=== PATIENT | female | born 1995 | race Caucasian/White ===

== ENCOUNTER 2019-03-05 16:00 | Emergency (ER) | payer SELFPAY ==
[~2019-03-05] VITALS: Ht 154.9 cm; Wt 68.0 kg
[2019-03-05 16:14] VITALS: BP 110/68
[2019-03-05] MEDS ORDERED: ACETAMINOPHEN EXTRA STRENGTH 500 MG TAB PO ONE (16:35)
[2019-03-05] MEDS ORDERED: ACETAMINOPHEN EXTRA STRENGTH 500 MG TAB ONE (16:46)
[2019-03-05 17:44] VITALS: BP 120/65
== END 2019-03-05 17:46 | disposition home or self-care (01) ==
LOC: MED 16:00
DX: S80.02XA Contusion of left knee, initial encounter (principal); W50.1XXA Accidental kick by another person, initial encounter; Y93.66 Activity, soccer; Y92.89 Other specified places as the place of occurrence of the external cause; Y99.8 Other external cause status
CPT/HCPCS: 73560; 99283

== ENCOUNTER 2019-03-10 20:17 | Emergency (ER) | payer MEDICAID ==
[~2019-03-10] VITALS: Ht 152.4 cm; Wt 68.0 kg
[2019-03-10 20:30] VITALS: BP 129/88
--- NOTE | 2019-03-10 20:43 | NUR ---
24 Y/O FEMALE C/O LT KNEE PAIN X1 WEEK. PT STATES SHE WAS SEEN LAST WEEK FOR PAIN S/P INJURY AND WAS USING CRUTCHES FOR 2 DAYS. PAIN INCREASED BY AMBULATION. 10/23 SHARP INTERMITTENT PAIN. NO SWELLING OR BRUISING NOTED. NO SIGNS OF DEFORMITY. LMP 03/03/19. PT POSITIONED IN BED FOR COMFORT. BED LOCKED AND IN LOW POSITION X1 SIDERAILE RAISED. MEDHX: DENIES ALLERGIES: NKA
[2019-03-10] MEDS ORDERED: KETOROLAC 30 MG/ML VIAL IM ONE (20:55)
--- NOTE | 2019-03-10 21:12 | NUR ---
Patient discharged with v/s stable. Written and verbal after care instructions given and explained. Patient alert, oriented and verbalized understanding of instructions. Ambulatory with steady gait. All questions addressed prior to discharge. ID band removed. Patient advised to follow up with PMD. Rx of norco and naprosyn given. Patient educated on indication of medication including possible reaction and side effects. Opportunity to ask questions provided and answered.
== END 2019-03-10 21:21 | disposition home or self-care (01) ==
LOC: MED 20:17
DX: M25.562 Pain in left knee (principal)
CPT/HCPCS: 96372; 99283; J1885

== ENCOUNTER 2019-04-11 19:40 | Emergency (ER) | payer MEDICAID ==
[~2019-04-11] VITALS: Ht 152.4 cm; Wt 68.0 kg
[2019-04-11 19:45] VITALS: BP 135/76
--- NOTE | 2019-04-11 21:34 | NUR ---
24 Y/O FEMALE BIB PARTNER WITH REPORTS OF PRESSURE, AND BURNING PAIN IN HER CHEST STARTING 20 MIN [employer]. STATES SHE WAS DRIVING HOME WHEN IT STARTED. PAIN IS NONRADIATING. STATES NAUSEA AND VOMITING X1. STATES SHE HAS HAD COLD SYMPTOMS FOR 2 DAYS. DIMINISHED BREATH SOUNDS HEARD ANTERIOR/POSTERIOR BILATERALLY. 99% ON RA. NONPRODUCTIVE DRY COUGH NOTED. ERMD MADE AWARE OF STATUS. PLACED ON MONITOR. WILL CONTINUE TO MONITOR. PMH:NONE RX:NONE NKDA
--- NOTE | 2019-04-11 21:42 | NUR ---
PT AMBULATED TO ER BED 08
--- NOTE | 2019-04-11 21:57 | NUR ---
X-RAY AT BEDSIDE
--- NOTE | 2019-04-11 22:12 | NUR ---
DR. GOMEZ AT BEDSIDE EVALUATING PATIENT.
[2019-04-11] MEDS ORDERED: KETOROLAC 60 MG/2 ML VIAL IM ONE (22:35)
[2019-04-11 22:48] VITALS: BP 129/67
--- NOTE | 2019-04-11 22:48 | NUR ---
Patient discharged with v/s stable. Written and verbal after care instructions given and explained. Patient alert, oriented and verbalized understanding of instructions. Ambulatory with steady gait. All questions addressed prior to discharge. ID band removed. Patient advised to follow up with PMD. Rx of PROMETHAZINE; AMOXICILLIN given. Patient educated on indication of medication including possible reaction and side effects. Opportunity to ask questions provided and answered.
== END 2019-04-11 22:48 | disposition home or self-care (01) ==
LOC: MED 19:40
DX: J18.9 Pneumonia, unspecified organism (principal)
CPT/HCPCS: 71045; 93005; 96372; 99283; J1885; Q0092

== ENCOUNTER 2019-05-11 00:46 | Emergency (ER) | payer MEDICAID ==
[~2019-05-11] VITALS: Ht 154.9 cm; Wt 68.0 kg
[2019-05-11 00:50] VITALS: BP 126/77
--- NOTE | 2019-05-11 00:54 | NUR ---
URINE SAMPLE COLLECTED AND PATIENT SENT TO LOBBY.
--- NOTE | 2019-05-11 01:16 | NUR ---
URINE TAKEN TO LAB.
[2019-05-11 01:54] LABS: APPEARANCE,URINE HAZY (CLEAR); BILIRUBIN,URINE NEGATIVE (NEGATIVE); BLOOD, URINE 3+ (NEGATIVE); COLOR,URINE YELLOW (YELLOW); LEUKOCYTE ESTERASE ,URINE TRACE (NEGATIVE); NITRITE, URINE NEGATIVE (NEGATIVE); UGLUCOSE NEGATIVE (NEGATIVE)
[2019-05-11 02:10] LABS: RBC,URINE 20-50 /HPF (0-5); WBC,URINE 60-80 /HPF (0-5)
[2019-05-11] MEDS ORDERED: CEPHALEXIN 500 MG CAP PO STA (02:31)
--- NOTE | 2019-05-11 02:42 | NUR ---
24 y/o female presents to ed with c/o urninary burning, itching, odor, and frequency x12 hrs. Afebrile with vss. No vaginal drainage or bleeding. 6/10 pain with urination. ER MD aware. Sitting in chair with family at chairide. Continue to monitor.
[2019-05-11 02:55] VITALS: BP 121/86
--- NOTE | 2019-05-11 02:55 | NUR ---
Patient discharged with v/s stable. She states pain reduced and tollerable at 2/10. Written and verbal after care instructions given and explained. Patient alert, oriented and verbalized understanding of instructions. Ambulatory with steady gait. All questions addressed prior to discharge. ID band removed. Patient advised to follow up with PMD and when to return to ER. Rx of Phenazopyridine and Keflex given. Patient educated on indication of medication including possible reaction and side effects. Opportunity to ask questions provided and answered.
== END 2019-05-11 02:55 | disposition home or self-care (01) ==
LOC: MED 00:46
DX: N39.0 Urinary tract infection, site not specified (principal); N30.90 Cystitis, unspecified without hematuria
CPT/HCPCS: 81001; 81025; 87086; 87186; 99283

== ENCOUNTER 2019-10-08 06:33 | Emergency (ER) | payer MEDICAID, OTHER ==
[~2019-10-08] VITALS: Ht 152.4 cm; Wt 68.0 kg
[2019-10-08 06:42] VITALS: BP 126/80
--- NOTE | 2019-10-08 06:49 | NUR ---
PT AMBULATED TO BED #7
--- NOTE | 2019-10-08 06:50 | NUR ---
24 Y/O MALE PRESENTED TO ED C/O UTI SYMPTOMS . PT STATES SHE HAS HAD BURNING PAIN UPON URINATION X 4 DAYS. PT STATES 2 WEEKS AGO SHE WAS DX W/ UTI AND TOOK ANTIBIOTICS TO COMPLETION AND THEN GOT A YEAST INFECTION. PT UNAWARE WHAT THE ANTIBIOTICS WERE THAT SHE TOOK. PT DENIES N/V/D/F. PT STATES SHE HAS BEEN TAKING AZO W/ NO RELIEF. PT BREATHING EVEN AND UNLABORED. A/O X4. PT RESTING IN BED, LOCKED AND IN LOWEST POSITION, HOB ELEVATED , SIDE RAIL X1. PMH: NONE NKA
--- NOTE | 2019-10-08 07:10 | NUR ---
REPORT GIVEN TO MADI PFEIFFER FOR TRANSFER OF CARE.
--- NOTE | 2019-10-08 07:22 | NUR ---
DR BOSS EVALUATING PT AT BEDSIDE
[2019-10-08 08:00] VITALS: BP 126/80
--- NOTE | 2019-10-08 08:00 | NUR ---
Patient discharged with v/s stable. Written and verbal after care instructions given and explained. Patient alert, oriented and verbalized understanding of instructions. Ambulatory with steady gait. All questions addressed prior to discharge. ID band removed. Patient advised to follow up with PMD. Rx of Phenazopyridine, Kelfex 500mg, Diflucan 150mg given. Patient educated on indication of medication including possible reaction and side effects. Opportunity to ask questions provided and answered.
== END 2019-10-08 08:00 | disposition home or self-care (01) ==
LOC: MED 06:33
DX: N39.0 Urinary tract infection, site not specified (principal); Z90.49 Acquired absence of other specified parts of digestive tract
CPT/HCPCS: 81002; 81025; 99283

== ENCOUNTER 2020-02-11 17:33 | Emergency (ER) | payer OTHER ==
[~2020-02-11] VITALS: Ht 152.4 cm; Wt 70.3 kg
[2020-02-11 17:35] VITALS: BP 119/71
[2020-02-11] MEDS: KETOROLAC 30 MG/ML VIAL IM ONE (17:59)
[2020-02-11] MEDS: MAGNESIUM CITRATE 300 ML BTL PO ONE (18:00)
== END 2020-02-11 19:26 | disposition home or self-care (01) ==
LOC: MED 17:33
DX: K59.00 Constipation, unspecified (principal); N39.0 Urinary tract infection, site not specified; Z90.49 Acquired absence of other specified parts of digestive tract
CPT/HCPCS: 74018; 81002; 81025; 87086; 96372; 99284; J1885

== ENCOUNTER 2020-03-09 21:53 | Emergency (ER) | payer OTHER ==
[~2020-03-09] VITALS: Ht 152.4 cm; Wt 69.4 kg
[2020-03-09 22:05] VITALS: BP 110/72
--- NOTE | 2020-03-09 22:13 | NUR ---
PT TAKEN TO BED 4
--- NOTE | 2020-03-09 22:45 | NUR ---
25 Y/O FEMALE C/O LOWER ABD PAIN STARTED TODAY, PAINFUL URINATION. PT STATES "I COME IN FOR THE SAME PAIN EVERY MONTH" STATES IT "FEELS LIKE A UTI." PT STATES 7/10 BURNING PAIN AND CONSTIPATION. DENIES NAUSEA/VOMITING. PT TOOK PHENZAPHYRIDINE TODAY. MEDHX: UTI NKA
--- NOTE | 2020-03-09 23:23 | NUR ---
Dr. Lujan examining patient.
[2020-03-09] MEDS ORDERED: KETOROLAC 30 MG/ML VIAL IM ONE (23:40)
[2020-03-09] MEDS ORDERED: PHENAZOPYRIDINE 100 MG TAB PO ONE (23:40)
[2020-03-09] MEDS ORDERED: SULFAMETH/TRIMETH DS 800/160MG 1 TAB PO ONE (23:40)
[2020-03-10 00:07] VITALS: BP 110/72
--- NOTE | 2020-03-10 00:07 | NUR ---
Patient discharged with v/s stable. Written and verbal after care instructions given and explained. Patient alert, oriented and verbalized understanding of instructions. Ambulatory with steady gait. All questions addressed prior to discharge. ID band removed. Patient advised to follow up with PMD. Rx of MIRALAX, PYRIDIUM, BACTRIM, MOTRIN, MINERAL OIL given. Patient educated on indication of medication including possible reaction and side effects. Opportunity to ask questions provided and answered.
== END 2020-03-10 00:07 | disposition home or self-care (01) ==
LOC: MED 21:53
DX: N39.0 Urinary tract infection, site not specified (principal); K59.00 Constipation, unspecified
CPT/HCPCS: 81002; 81025; 96372; 99283; J1885

== ENCOUNTER 2020-03-24 05:25 | Emergency (ER) | payer OTHER ==
[~2020-03-24] VITALS: Ht 152.4 cm; Wt 68.0 kg
[2020-03-24 05:25] VITALS: BP 110/75
--- NOTE | 2020-03-24 05:28 | NUR ---
TO LOBBY A/W BED AMBULATORY
--- NOTE | 2020-03-24 05:53 | NUR ---
Dr. Nguyen examining patient.
--- NOTE | 2020-03-24 06:49 | NUR ---
PT TAKEN TO CT FROM [facility]
[2020-03-24] MEDS ORDERED: IBUPROFEN 400 MG TAB PO ONE (07:30)
--- NOTE | 2020-03-24 07:30 | NUR ---
Patient being evaluated by DR ZAPIEN at TRIAGE.
--- NOTE | 2020-03-24 07:42 | NUR ---
25/F BIB SILF C/O LOWER ABD PAIN 8/10 AT THIS TIME. X 3 DAYS.DENIES DYSURIA OR N/V/D. ABD SOFT, NO TENDERNESS
--- NOTE | 2020-03-24 08:13 | NUR ---
BLOOD DRAWN AND WALKED TO LAB, HANDED TO LEEANN
[2020-03-24 08:22] LABS: BASOPHILS % (AUTO) 0.4 % (0.0-2.0); EOSINOPHILS # (AUTO) 0.2 K/uL (0-0.4); EOSINOPHILS % (AUTO) 2.7 % (0.0-4.0); LYMPHOCYTES # (AUTO) 1.3 K/uL (2.5-16.5); LYMPHOCYTES % (AUTO) 20.5 % (20.5-51.1); MEAN CORPUSCULAR HEMOGLOBIN 31 pg (27-31); MEAN CORPUSCULAR HGB CONC 33 g/dL (33-37); MEAN CORPUSCULAR VOLUME 91.8 fL (80-94); MONOCYTES # (AUTO) 0.4 K/uL (0.8-1.0); MONOCYTES % (AUTO) 6.3 % (1.7-9.3); NEUTROPHILS # (AUTO) 4.6 K/uL (1.8-7.7); NEUTROPHILS % (AUTO) 70.1 % (42.2-75.2); PLATELET COUNT (AUTO) 217 K/uL (140-450); RED BLOOD CELL COUNT(AUTO) 4.25 MIL/uL (4.20-5.40); WHITE BLOOD COUNT (AUTO) 6.5 K/uL (4.8-10.8)
[2020-03-24 08:42] LABS: BILIRUBIN,URINE NEGATIVE (NEGATIVE); BLOOD, URINE 3+ (NEGATIVE); COLOR,URINE YELLOW (YELLOW); LEUKOCYTE ESTERASE ,URINE NEGATIVE (NEGATIVE); NITRITE, URINE NEGATIVE (NEGATIVE); UGLUCOSE NEGATIVE (NEGATIVE)
[2020-03-24 08:48] LABS: ALBUMIN 4.2 g/dL (3.4-5.0); ANION GAP 12.8 (8-16); CARBON DIOXIDE 28.1 mmol/L (21-32); CREATININE 0.5 mg/dL (0.6-1.3); POTASSIUM 3.9 mmol/L (3.5-5.1); TOTAL BILIRUBIN 0.2 mg/dL (0.0-1.0)
[2020-03-24 09:11] LABS: APPEARANCE,URINE SLIGHTLY HAZY (CLEAR)
[2020-03-24 09:14] LABS: WBC,URINE 0-5 /HPF (0-5)
[2020-03-24] MEDS ORDERED: ACETAMINOPHEN 325 MG TAB PO ONE (10:50)
[2020-03-24] MEDS ORDERED: ONDANSETRON 4 MG ODT PO ONE (11:20)
[2020-03-24] MEDS ORDERED: MORPHINE SULFATE 4 MG/ML SYR IM ONE ×2 (11:20→12:35)
--- NOTE | 2020-03-24 13:08 | NUR ---
PT MOVED TO BED 11.
--- NOTE | 2020-03-24 13:11 | NUR ---
RECEIVED REPORT FROM MADI [facility]ITAL FOR CONTINUATION OF CARE AT THIS TIME. PT IS LAYING DOWN IN SEMI-FOWLERS POSITION. BED IS LOCKED AND IN LOWEST POSITION. SIDE RAILS X1 WILL CONTINUE TO MONITOR.
--- NOTE | 2020-03-24 14:04 | NUR ---
PTS BOYFRIEND BROUGHT HER JAMBA JUICE, ERMD MADE AWARE AND STATED THAT IT WAS OK TO GIVE TO HER
--- NOTE | 2020-03-24 14:09 | NUR ---
[facility] CALLED LAB TO RECEIVE A STATUS UPDATE ON THE RHOGAM
--- NOTE | 2020-03-24 14:45 | NUR ---
LAB CALLED TO LET ME KNOW THAT RHOGAM IS READY TO BE PICKED UP
--- NOTE | 2020-03-24 15:00 | NUR ---
PT SIGNED CONSENT FOR RHOGAM TO BE GIVEN
--- NOTE | 2020-03-24 15:02 | NUR ---
WALKED OVER TO LAB TO [facility]
--- NOTE | 2020-03-24 15:18 | NUR ---
per ermd order rhogam given IM in the left gluteus ester. pt tolerated well. will continue to monitor.
[2020-03-24 15:57] VITALS: BP 102/50
--- NOTE | 2020-03-24 15:57 | NUR ---
Patient discharged with v/s stable. Written and verbal after care instructions given and explained. Patient verbalized understanding. Ambulatory with steady gait. All questions addressed prior to discharge. Advised to follow up with PMD.
== END 2020-03-24 15:57 | disposition home or self-care (01) ==
LOC: MED 05:25
DX: R10.30 Lower abdominal pain, unspecified (principal); Z67.41 Type O blood, Rh negative
CPT/HCPCS: 36415; 74176; 76817; 80053; 81001; 81025; 83690; 84702; 85025; 86886; 86900; 86901; 87086; 96372; 99285; J2270; J2790; Q0162

== ENCOUNTER 2020-03-27 01:45 | Emergency (ER) | payer OTHER ==
--- NOTE | 2020-03-27 03:03 | NUR ---
LEFT WITHOUT BEING SEEN
== END 2020-03-27 03:03 | disposition left against medical advice (07) ==
LOC: MED 01:45
DX: R10.9 Unspecified abdominal pain (principal); Z53.21 Procedure and treatment not carried out due to patient leaving prior to being seen by health care provider
CPT/HCPCS: 99281

== ENCOUNTER 2020-04-05 18:40 | Emergency (ER) | payer OTHER ==
[~2020-04-05] VITALS: Ht 160 cm; Wt 59.0 kg
[2020-04-05 18:45] VITALS: BP 124/74
--- NOTE | 2020-04-05 18:48 | NUR ---
TO LOBBY A/W BED AMBULATORY
--- NOTE | 2020-04-05 21:25 | NUR ---
SEEN AND EXAMINED BY LUCITA WITH ORDERS AND CARRIED OUT
[2020-04-05] MEDS ORDERED: MORPHINE SULFATE 4 MG/ML SYR IVP ONE (21:30)
[2020-04-05] MEDS ORDERED: ONDANSETRON 4 MG/2 ML VIAL IVP ONE (21:30)
[2020-04-05] MEDS ORDERED: NACL 0.9% 1,000 ML IV ONE (21:30)
[2020-04-05 22:30] LABS: BASOPHILS % (AUTO) 0.4 % (0.0-2.0); EOSINOPHILS # (AUTO) 0.2 K/uL (0-0.4); HEMATOCRIT 39.8 % (36-48); HEMOGLOBIN 13.4 g/dL (12.0-16.0); LYMPHOCYTES # (AUTO) 2.4 K/uL (2.5-16.5); MEAN CORPUSCULAR HEMOGLOBIN 30 pg (27-31); MEAN CORPUSCULAR HGB CONC 34 g/dL (33-37); MEAN CORPUSCULAR VOLUME 90.3 fL (80-94); MONOCYTES # (AUTO) 0.6 K/uL (0.8-1.0); MONOCYTES % (AUTO) 7.2 % (1.7-9.3); NEUTROPHILS # (AUTO) 5.1 K/uL (1.8-7.7); NEUTROPHILS % (AUTO) 61.4 % (42.2-75.2); PLATELET COUNT (AUTO) 262 K/uL (140-450); RED BLOOD CELL COUNT(AUTO) 4.41 MIL/uL (4.20-5.40); WHITE BLOOD COUNT (AUTO) 8.3 K/uL (4.8-10.8)
[2020-04-05 23:01] LABS: ALBUMIN 4.3 g/dL (3.4-5.0); ANION GAP 13.8 (8-16); CARBON DIOXIDE 28.7 mmol/L (21-32); CREATININE 0.6 mg/dL (0.6-1.3); POTASSIUM 3.5 mmol/L (3.5-5.1); TOTAL BILIRUBIN 0.3 mg/dL (0.0-1.0)
[2020-04-05] MEDS ORDERED: HYDROcodone/APAP 10/325 MG 1 TAB TAB PO PRN (23:15)
[2020-04-05] MEDS ORDERED: ONDANSETRON 4 MG ODT PO ONE (23:15)
[2020-04-05] MEDS ORDERED: NAPROXEN 500 MG TAB ONE (23:59)
--- NOTE | 2020-04-06 | NUR ---
MEDICATED PER ERMDS ORDER, CARRIED OUT
--- NOTE | 2020-04-06 00:48 | NUR ---
CAROLYND RE EVALUATED AND TALKED TO THE PATIENT.
[2020-04-06 00:55] VITALS: BP 124/74
--- NOTE | 2020-04-06 00:55 | NUR ---
Patient discharged with v/s stable. Written and verbal after care instructions given and explained. Patient alert, oriented and verbalized understanding of instructions. Ambulatory with steady gait. All questions addressed prior to discharge. ID band removed. Patient advised to follow up with PMD. Rx of NORCO, NAPROXEN given. Patient educated on indication of medication including possible reaction and side effects. Opportunity to ask questions provided and answered.
[2020-04-06] MEDS ORDERED: NAPROXEN 500 MG TAB PO SCH (09:00)
== END 2020-04-06 00:55 | disposition home or self-care (01) ==
LOC: MED 18:40
DX: O20.0 Threatened abortion (principal); Z3A.08 8 weeks gestation of pregnancy
CPT/HCPCS: 36415; 76801; 80053; 81002; 81025; 84702; 85025; 86900; 86901; 99284; Q0162

== ENCOUNTER 2022-01-08 04:00 | Emergency (ER) | payer OTHER ==
[~2022-01-08] VITALS: Ht 160 cm; Wt 71.2 kg
[2022-01-08 04:07] VITALS: BP 122/78
--- NOTE | 2022-01-08 04:11 | NUR ---
PT TO LOBBY.
[2022-01-08] MEDS ORDERED: DEXAMETHASONE 10 MG/ML VIAL PO ONE (05:25)
--- NOTE | 2022-01-08 05:36 | NUR ---
PT MEDICATED, SWABS COLLECTED AND TAKEN TO LAB
[2022-01-08] MEDS ORDERED: PENI500T20 PO (05:39)
[2022-01-08 05:46] VITALS: BP 122/78
--- NOTE | 2022-01-08 05:46 | NUR ---
Patient discharged with v/s stable. Written and verbal after care instructions given and explained. Patient alert, oriented and verbalized understanding of instructions. Ambulatory with steady gait. All questions addressed prior to discharge. ID band removed. Patient advised to follow up with PMD. Rx of PCN V POTASSIUM given. Patient educated on indication of medication including possible reaction and side effects. Opportunity to ask questions provided and answered.
== END 2022-01-08 05:46 | disposition home or self-care (01) ==
LOC: MED 04:00
DX: J02.9 Acute pharyngitis, unspecified (principal); Z20.822 Contact with and (suspected) exposure to COVID-19
CPT/HCPCS: 87081; 87426; 99283; J1100

== ENCOUNTER 2022-03-08 18:52 | Emergency (ER) | payer OTHER ==
[~2022-03-08] VITALS: Ht 154.9 cm; Wt 70.3 kg
[~2022-03-08 18:52] MED LIST: PENI500T20 PO
[2022-03-08 19:03] VITALS: BP 104/74
--- NOTE | 2022-03-08 19:07 | NUR ---
Patient ambulated to bed 5.
--- NOTE | 2022-03-08 19:10 | NUR ---
Dr. Rios at bedside examining pt.
[2022-03-08] MEDS ORDERED: DEXAMETHASONE 10 MG/ML VIAL PO ONE (19:15)
[2022-03-08] MEDS ORDERED: ACET-10509 PO (19:19)
[2022-03-08] MEDS ORDERED: METO-485 PO (19:19)
--- NOTE | 2022-03-08 19:28 | NUR ---
Pt coming from home ambulatory with steady gait. Pt is A&Ox4. C/O sore throat pain 4/10 non-radiating. VSS. Skin intact. NKA. No known medical conditions. Denies n/v. No chest pain and no sob. Bed in lowest position.
[2022-03-08 20:17] VITALS: BP 99/65
--- NOTE | 2022-03-08 20:17 | NUR ---
Patient discharged with v/s stable. Written and verbal after care instructions given and explained. Patient alert, oriented and verbalized understanding of instructions. Ambulatory with steady gait. All questions addressed prior to discharge. ID band removed. Patient advised to follow up with PMD. Rx of TYLENOL, REGLAN given. Patient educated on indication of medication including possible reaction and side effects. Opportunity to ask questions provided and answered.
== END 2022-03-08 20:17 | disposition home or self-care (01) ==
LOC: MED 18:52
DX: B34.9 Viral infection, unspecified (principal); Z20.822 Contact with and (suspected) exposure to COVID-19; Z79.899 Other long term (current) drug therapy; Z79.2 Long term (current) use of antibiotics
CPT/HCPCS: 87426; 87804; 99283; J1100

== ENCOUNTER 2022-04-03 23:38 | Emergency (ER) | payer OTHER ==
[~2022-04-03] VITALS: Ht 152.4 cm; Wt 70.3 kg
[~2022-04-03 23:38] MED LIST changes: +ACET-10509 PO; +METO-485 PO
[2022-04-04 00:23] VITALS: BP 111/81
--- NOTE | 2022-04-04 00:30 | NUR ---
TO LOBBY FOLLOWING TRIAGE
--- NOTE | 2022-04-04 01:20 | NUR ---
PT TAKEN TO XRAY
--- NOTE | 2022-04-04 02:36 | NUR ---
Dr. Knutson examining patient.
[2022-04-04] MEDS ORDERED: KETOROLAC 30 MG/ML VIAL IM ONE (02:40)
[2022-04-04] MEDS ORDERED: NAPR-1717 PO (02:45)
[2022-04-04] MEDS ORDERED: AZIT250T3 PO (02:45)
[2022-04-04] MEDS ORDERED: ROBAC PO (02:45)
[2022-04-04 03:06] VITALS: BP 117/79
--- NOTE | 2022-04-04 03:06 | NUR ---
Patient discharged with v/s stable. Written and verbal after care instructions given and explained. Patient alert, oriented and verbalized understanding of instructions. Ambulatory with steady gait. All questions addressed prior to discharge. ID band removed. Patient advised to follow up with PMD. Rx of ZITHROMAX NAPROSYN GUAIFENESIN given.
== END 2022-04-04 03:06 | disposition home or self-care (01) ==
LOC: MED 23:38
DX: J06.9 Acute upper respiratory infection, unspecified (principal); Z20.822 Contact with and (suspected) exposure to COVID-19; R07.89 Other chest pain; R05.9 Cough, unspecified; R09.89 Other specified symptoms and signs involving the circulatory and respiratory systems; Z79.899 Other long term (current) drug therapy
CPT/HCPCS: 71045; 87426; 87804; 96372; 99283; J1885

== ENCOUNTER 2022-10-31 01:25 | Emergency (ER) | payer OTHER ==
[~2022-10-31] VITALS: Ht 152.4 cm; Wt 70.3 kg
[~2022-10-31 01:25] MED LIST changes: +AZIT250T3 PO; +NAPR-1717 PO; +ROBAC PO
[2022-10-31 01:51] VITALS: BP 113/82; PULSE 74; RESP 20; TEMP 98.4; O2SAT 100
--- NOTE | 2022-10-31 01:57 | NUR ---
PT TRIAGED AND AMBULATED TO WR.
[2022-10-31 02:09] LABS: APPEARANCE,URINE CLEAR (CLEAR); BILIRUBIN,URINE NEGATIVE (NEGATIVE); BLOOD, URINE NEGATIVE (NEGATIVE); COLOR,URINE YELLOW (YELLOW); LEUKOCYTE ESTERASE ,URINE NEGATIVE (NEGATIVE); NITRITE, URINE NEGATIVE (NEGATIVE); PH,URINE 6.5 (5.0-9.0); UGLUCOSE NEGATIVE (NEGATIVE)
--- NOTE | 2022-10-31 04:44 | NUR ---
Pt to bed 9
--- NOTE | 2022-10-31 05:52 | NUR ---
ERMD by bedside at this time
[2022-10-31] MEDS ORDERED: KETOROLAC 30 MG/ML VIAL IM ONE (05:55)
[2022-10-31] MEDS ORDERED: diazePAM 5 MG TAB PO ONE (05:55)
[2022-10-31] MEDS ORDERED: NAPR-54 PO (06:34)
[2022-10-31] MEDS ORDERED: LID5T TP (06:34)
[2022-10-31] MEDS ORDERED: CYCL-711 PO (06:34)
--- NOTE | 2022-10-31 06:45 | NUR ---
Per pt, no relief from back pain. ERMD was notified.
[2022-10-31] MEDS ORDERED: MORPHINE SULFATE 4 MG/ML SYR IM ONE (06:50)
--- NOTE | 2022-10-31 07:02 | NUR ---
ERMD by bedside at this time
--- NOTE | 2022-10-31 07:25 | NUR ---
Patient discharged with v/s stable. Written and verbal after care instructions given and explained. New rx flexeril, lidoderm patch, naproxen. Patient verbalized understanding. Ambulatory with steady gait. All questions addressed prior to discharge. Advised to follow up with PMD.
[2022-10-31 07:26] VITALS: BP 113/82; PULSE 74; RESP 20; TEMP 98.4; O2SAT 100
== END 2022-10-31 07:25 | disposition home or self-care (01) ==
LOC: MED 01:25
DX: M54.50 Low back pain, unspecified (principal); R10.9 Unspecified abdominal pain; Z79.899 Other long term (current) drug therapy; Z90.49 Acquired absence of other specified parts of digestive tract
CPT/HCPCS: 81003; 81025; 96372; 99284; J1885; J2270

== ENCOUNTER 2023-05-16 10:15 | Observation (INO) | payer MEDICAID, OTHER ==
[~2023-05-16 10:15] MED LIST changes: +CYCL-711 PO; +LID5T TP; +NAPR-54 PO
[2023-05-16] MEDS ORDERED: PREN-537 PO (14:19)
== END 2023-05-16 14:45 | disposition home or self-care (01) ==
LOC: MLD 10:15 → MFCC 11:20
PROVIDERS: ADMIT Obstetrics & Gynecology; ATTEND Obstetrics & Gynecology
DX: O99.891 Other specified diseases and conditions complicating pregnancy (principal); M54.9 Dorsalgia, unspecified; Z3A.21 21 weeks gestation of pregnancy
CPT/HCPCS: G0378